=== PATIENT | female | born 1990 | race Caucasian/White ===

== ENCOUNTER → 2016-06-30 | Outpatient (CLI) | payer BC ==
--- NOTE | 2016-06-30 13:35 | DIAGNOSTIC IMAGING REPORT ---
CT OF THE HEAD WITHOUT CONTRAST CLINICAL HISTORY: Post concussion syndrome. COMPARISON STUDY: No previous studies for comparison. TECHNIQUE: Helical axial images of the head were obtained without IV contrast. Automated exposure control was utilized for the study. FINDINGS: No acute intracranial hemorrhage, midline shift or mass effect is present. Brain volume is normal. Ventricular system is normal. The basilar cisterns are patent. Cao-white differentiation is maintained. There are no findings to suggest acute dural sinus thrombosis or acute territorial infarct. There is no calvarial fracture. Visualized portions of the sinuses and the mastoid air cells are clear. IMPRESSION: 1. No acute intracranial findings. 2. No calvarial fracture. Electronically signed by: Richie Farah M.D. 06/30/2016 1:33 PM Dictated Date/Time: 06/30/2016 1:31 PM
== END | disposition home or self-care (01) ==
LOC: C.CTS 12:56
PROVIDERS: ATTEND Family Medicine
DX: S06.0X9A Concussion with loss of consciousness of unspecified duration, initial encounter (principal); X58.XXXA Exposure to other specified factors, initial encounter; M54.2 Cervicalgia

== ENCOUNTER → 2017-09-11 | Outpatient (CLI) | payer BC | END | disposition home or self-care (01) | LOC: C.LABSPEC 13:26 | PROVIDERS: ATTEND Obstetrics & Gynecology | DX: Z11.3 Encounter for screening for infections with a predominantly sexual mode of transmission (principal) ==

== ENCOUNTER 2020-10-22 07:38 | Inpatient (IN) ==
[2020-10-22] MEDS ORDERED: OXYTOCIN 30 UNITS/500 ML BAG IV PRN ×2 (09:35→09:37)
--- NOTE | 2020-10-22 09:48 | History & Physical Report ---
Date of Service October 22, 2020 Assessment & Plan (1) Supervision of normal first : Fariab Fitzpatrick is a 30yo female currently at 39+6 wga who presents to L&D for scheduled IOL. -admit to L&D -VSS -peripheral IV, labs -pitocin per protocol -Rh pos / rubella equivocal / GBS neg -Will need MMR -anticipate (2) Need for immunization against rubella: Admission and Anticipated Discharge Date Admission Date: October 22, 2020 History of Present Illness Primary Care Provider: Bennie Philip MD Fariba Fitzpatrick is a 30yo female currently at 39+6 wga (CRUZ 10/23/20 by LMP) who presents to L&D for IOL. Patient reports rare irregular contractions, + movement, denies fluid loss, or bloody show. Patient had a carter bulb placed yesterday; it was in place upon patient arrival today, and was removed by Dr. Everett. Patient endorses very mild spotting after carter bulb placement. Patient endorses mild ankle swelling; denies other symptoms at this time including abdominal pain, nausea, vomiting, headache, chest pain, SOB, or other symptoms. Patient had regular care through [facility]. course was complicated by covid infection in July, which was a 4-5 day course of mild/moderate upper respiratory symptoms; patient did not require hospitalization or medical intervention. Patient has no chronic medical conditions. Patient's daily meds are PNV daily, colace twice daily, and iron supplementation every other day. Blood type: AB pos Antibody screen: neg PNL: Rubella: equivocal VDRL/RPR: nonreactive Gonorrhea: not detected Chlamydia: not detected HIV: negative HbSAg: neg GBS negative 09/30/20 COVID-19 positive on 08/02/20 Other screens: CF: neg Pano: neg Allergies Allergy/AdvReac Type Severity Reaction Status Date / Time No Known Allergies Allergy Verified 10/22/20 08:25 Home Medications Medication Instructions Recorded Confirmed Type prenat.vits,ivonne,pii-[id number]-[id number] 1 tab PO DAILY 03/12/20 10/22/20 History docusate sodium 100 mg capsule 100 mg PO BID 07/05/20 10/22/20 History ferrous sulfate 27 mg PO .every other day 08/26/20 10/22/20 History Patient History Medical History ASCUS with positive high risk HPV (2013) History of chlamydia (2013) History of pyelonephritis (Unknown) Varicella vaccination Surgical History H/O oral surgery History of colposcopy (2013) S/P wisdom tooth extraction Family History Aunt Ovarian cancer maternal Father Sarcoma Grandfather (Paternal) Prostate cancer Denies family history of Breast cancer Colorectal cancer Social History (Updated 03/12/20 @ 11:10 by Miriam Will) Smoking Status: Never smoker Second Hand Exposure: No; Hx Alcohol Use: No Hx Substance Use: No Preferred Language: Hebrew Communication Ability: Effective Beliefs That Will Affect Care: None marital status: marital status details: Gal Piersonjean carlos (33) [phone] Current Living Situation: Spouse Current Living Situation Comment: Gal Fitzpatrick current occupational status: employed current occupation: [employer] Other Information That Helps Us Care for You: No Feels Safe at Home: Yes Safety Concerns: Feels Safe At This Time Physical Activity Frequency: 3-4 Times per Week Assistive Devices: None Review of Systems Denies fever, chills, shortness of breath, cough, chest pain, breast pain, dysuria, hematuria, leg pain, headache, or changes in vision. Physical Exam Physical Exam: General: well-appearing, alert, oriented, no acute distress Cardiac: regular rhythm, no murmur appreciated Respiratory: CTABL a/p, no wheezes/rales/rhonchi, no increased work of breathing, symmetrical chest rise, no respiratory distress Abdomen: normal gravid abdomen, + heart tones, - palpable contractions Pelvic: dilation 3cm, effacement 80%, station -[address] Everett, EFW 8-9lbs External FHT and external uterine monitors used; FHR 150, moderate variability, + accels, no decels or variables, cat 1 tracing Lower extremities: 1+ pitting edema of the lower extremities bilaterally, no deep calf pain, Winnie's negative bilaterally Results & Data ([facility]) Vital Signs (Past 12 Hours) Vital Signs Temp Pulse Resp BP 10/22/20 08:00 36.9 C 20 10/22/20 07:57 92 H 133/78 Laboratory Results Labs at admission today H.9 Hct: 36.1 WBC: 10.65 Plt: 256 Code Status & VTE Plan VTE Prophylaxis Plan VTE Prophylaxis will be ordered: No Supervising Physician Co-Signing Physician Notes 30 y/o G1 at 39 6/7 wga presents for eIOL for suspected LGA. +FM; denies regular ctx, LOF, VB. Had carter bulb placed last night and removed this morning. Will start pit. GBS neg. COVID+ within the last 90 days but >10 days so repeat testing deferred per protocol. Coding Level of Care Code None Diagnoses Supervision of normal first Z34.00 Need for immunization against rubella Z23 Resident Activity Tracking Resident Involvement: Resident Care Provided Care Provided: OB Delivery
[2020-10-22 09:54] LABS: Hematocrit (blood only) 36.1 % (37-47); Hemoglobin 12.9 g/dL (12.0-16.0); Mean Corpuscular Hemoglobin 33.5 pg (25-34); Mean Corpuscular Hgb Conc 35.7 g/dL (32-36); Mean Corpuscular Volume 93.8 fL (80-100); Mean Platelet Volume 10.6 fL (7.4-10.4); Platelet Count 256 K/uL (130-400); RDW Coefficient of Variation 13.1 % (11.5-14.5); RDW Standard Deviation 44.7 fL (36.4-46.3); Red Blood Count 3.85 M/uL (4.2-5.4); White Blood Count 10.65 K/uL (4.8-10.8)
[2020-10-22] MEDS: LACTATED RINGER'S 1,000 ML IV PRN ×4 (10:16→21:32)
[2020-10-22] MEDS ORDERED: ePHEDrine sulfate 50 MG/ML AMP ONE (14:34)
[2020-10-22] MEDS ORDERED: BUPIVACAINE 0.25% 30 ML VIAL ONE (14:35)
[2020-10-22] MEDS ORDERED: SODIUM CHLORIDE 0.9% INJ 10 ML VIAL ONE (14:35)
[2020-10-22] MEDS ORDERED: fentaNYL citrate 100 MCG/2 ML VIAL ONE (14:35)
[2020-10-22] MEDS ORDERED: fentaNYL 2MCG/ML ROPIVACAINE 1.25MG/ML 100 ML BAG EPI ONE (14:36)
--- NOTE | 2020-10-22 15:22 | Anesthesiology Consultation ---
Date of Service October 22, 2020 Assessment & Plan ASA ASA2 Proposed Anesthesia Anesthesia Type: Labor Epidural Risk / Benefits Reviewed With: PT / POA / Parent / Guardian, Accepts Plan and Informed Consent Obtained History Height/Weight Height: 5 ft 5 in Weight: 90.855 kg Allergies Allergy/AdvReac Type Severity Reaction Status Date / Time No Known Allergies Allergy Verified 10/22/20 08:25 Medications Home Medications Medication Instructions Recorded Confirmed Last Taken prenat.vits,ivonne,[id number] 1 tab PO DAILY 03/12/20 10/22/20 10/22/20 06:00 docusate sodium 100 mg capsule 100 mg PO BID 07/05/20 10/22/20 10/22/20 06:00 ferrous sulfate 27 mg PO .every other day 08/26/20 10/22/20 10/22/20 06:00 Active Medications Generic Name Dose Route Start Last Admin Trade Name Freq PRN Reason Stop Dose Admin Oxytocin 30 units in 500 mls @ 10 mls/hr 10/22/20 09:37 10/22/20 14:50 Pitocin IV 10/24/20 09:36 0.6 units/hr .Q24H PRN 10 mls/hr Labor Induction/Augmentation Titration Protocol 0.6 UNITS/HR Lactated Ringer's 1,000 mls @ 125 mls/hr 10/22/20 09:35 10/22/20 15:18 Lr IV 10/24/20 09:34 125 mls/hr .Q8H PRN Infusion L&D Protocol Protocol Past Medical History Medical History ASCUS with positive high risk HPV (2012) History of chlamydia (2013) History of pyelonephritis (Unknown) Varicella vaccination Exercise / Class Metabolic Activity II 4-5 Yardwork/Stairs/Walk up hill Past Family History Family History Aunt Ovarian cancer maternal Father Sarcoma Grandfather (Paternal) Prostate cancer Denies family history of Breast cancer Colorectal cancer Past Surgical History Surgical History H/O oral surgery History of colposcopy (2012) S/P wisdom tooth extraction Past Anesthesia History No Hx of Anesthesia Complications and No Family Hx of Anesthesia Complications History of PONV No Hx of PONV and No Hx of Motion Sickness Social History Smoking Status: Never smoker Hx Alcohol Use: No Hx Substance Use: No substance use type: does not use Review of Systems denies fever/cough/ colds/ chest pain/ SOB/ ROBERT denies ROBERT Physical Exam Vital Signs Last Vital Signs Temp 36.9 C 10/22/20 12:32 Pulse 79 10/22/20 15:18 Resp 18 10/22/20 12:32 BP 104/61 10/22/20 15:18 Pulse Ox 99 10/22/20 15:14 ENMT Mouth: no TMJ abnormality and no dentition abnormality Thyromental Distance: > or= 3.5 Finger Breadths Mallampati Class: II Neck neck extension not limited Respiratory normal respiratory effort; no respiratory distress Auscultation: lungs clear to auscultation bilaterally Cardiovascular Rate/Rhythm: regular rate and regular rhythm Neurologic moves all extremities Psychiatric Orientation: alert and oriented x 3 Testing Laboratory Results 10/22/20 09:44
[2020-10-22] MEDS ORDERED: ePHEDrine sulfate 50 MG/ML AMP IV PRN (15:25)
[2020-10-22] MEDS ORDERED: NALOXONE HCL 1 MG in SODIUM CHLORIDE 0.9% 1000ML 1,000 ML IV PRN (15:25)
[2020-10-22] MEDS ORDERED: NALOXONE HCL 0.4 MG/1 ML VIAL/CARP IV PRN (15:25)
[2020-10-22] MEDS ORDERED: diphenhydrAMINE 50 MG/ML VIAL IV PRN (15:25)
--- NOTE | 2020-10-22 15:32 | Labor Progress Brief Note ---
Date of Service October 22, 2020 Subjective Comfortable w/ epidural Assessment & Plan (1) : 30 y/o G1 at 39 6/7 wga presenting for IOL for suspected macrosomia VSS Fetus cat 1 Labor - pit per protocol, s/p arom GBS neg Epidural in place Admission and Anticipated Discharge Date Admission Date: October 22, 2020 Physical Exam Constitutional: WD/WN, vitals as above Genitourinary: Manual OB Exam: + cervical dilation 4 cm, + cervical effacement 70%, + station -2 and + amniotic fluid (clear fluid) OB Exam Monitor Tracing: + external FHT monitor used, + external uterine monitor used (q2-3) and + category I (125/mod/+accel/-decel) Results & Data ([facility]) Vital Signs (Past 12 Hours) Vital Signs Temp Pulse Resp BP Pulse Ox 10/22/20 15:28 75 107/60 10/22/20 15:26 83 108/59 L 10/22/20 15:24 83 113/61 100 10/22/20 15:22 88 108/60 10/22/20 15:20 76 105/58 L 10/22/20 15:19 77 98 10/22/20 15:18 79 104/61 10/22/20 15:16 78 112/59 L 10/22/20 15:14 89 123/59 L 99 10/22/20 15:13 95 H 110/56 L 10/22/20 15:12 99 H 120/63 10/22/20 15:10 87 126/73 10/22/20 15:09 88 99 10/22/20 15:08 92 H 142/83 H 10/22/20 15:05 85 141/80 H 10/22/20 15:04 85 100 10/22/20 14:59 89 100 10/22/20 14:54 79 100 10/22/20 14:49 85 100 10/22/20 14:44 77 99 10/22/20 14:39 83 100 10/22/20 14:34 82 99 10/22/20 14:29 76 135/81 98 10/22/20 12:32 98.4 F 18 10/22/20 12:30 75 119/60 10/22/20 11:27 82 122/70 10/22/20 10:10 78 136/77 10/22/20 08:00 98.4 F 20 10/22/20 07:57 92 H 133/78 Coding Level of Care Code None Diagnoses Z34.90
--- NOTE | 2020-10-22 18:18 | Labor Progress Brief Note ---
Date of Service October 22, 2020 Subjective Pt still comfortable with epidural. Had spontaneous decel for 3 minutes that resolved with maternal repositioning and bolus, while recovering fetus was noted to have recurrent late decels that then resolved over time with further repositioning. During repositioning at another shorter decel that again resolved with maternal repositioning. Pit able to remain at 10 during this time. Assessment & Plan (1) : 30 y/o G1 at 39 6/7 wga presenting for IOL for suspected macrosomia VSS Fetus cat 2, improved repositioning Labor - pit per protocol, s/p arom. Good variability remains, will continue repositioning. May need pit break if occurs again. Discussed w/ pt if there is another decel where heart rate remains bradycardic, that would be indication for emergent CS. Discussed indications, risks, benefits, alternatives with risks including infection, bleeding, injury to adjacent structures (bowel, bladder, ureters, blood vessels, nerves, baby), possible need for blood transfusion and/or life saving hysterectomy. Pt verbalized understanding. Will continue to monitor GBS neg Epidural in place Admission and Anticipated Discharge Date Admission Date: October 22, 2020 Physical Exam Genitourinary: OB Exam Monitor Tracing: + external uterine monitor used (q4) and + category I (155/mod/-accels/intermittent late/variables) Results & Data ([facility]) Vital Signs (Past 12 Hours) Vital Signs Temp Pulse Resp BP Pulse Ox 10/22/20 18:09 76 100 10/22/20 18:05 78 108/54 L 10/22/20 18:04 82 100 10/22/20 18:00 18 10/22/20 17:59 85 100 10/22/20 17:54 79 100 10/22/20 17:51 77 112/57 L 10/22/20 17:49 74 100 10/22/20 17:44 80 100 10/22/20 17:39 81 100 10/22/20 17:37 98.4 F 10/22/20 17:35 82 118/64 10/22/20 17:34 79 100 10/22/20 17:30 18 10/22/20 17:29 77 100 10/22/20 17:24 82 100 10/22/20 17:22 91 H 94 10/22/20 17:21 78 118/64 10/22/20 17:19 97 H 100 10/22/20 17:14 73 100 05 17:09 73 100 0507 17:05 75 121/64 05 17:04 73 100 05 17:00 18 10/22/20 16:59 75 99 0507 16:54 72 100 10/22/20 16:50 77 134/66 05 16:49 85 100 0507 16:44 80 125/72 100 0507 16:39 71 122/68 100 05 16:35 75 116/63 05 16:34 71 99 10/22/20 16:30 81 18 112/70 05 16:29 79 100 05 16:24 90 110/64 100 10/22/20 16:20 80 123/69 05 16:19 81 100 10/22/20 16:18 84 93 10/22/20 16:14 80 114/62 100 05 16:09 84 116/64 100 10/22/20 16:06 77 122/67 05 16:04 72 100 10/22/20 16:00 18 10/22/20 15:59 79 118/66 100 0507 15:54 75 122/69 99 07 15:50 77 122/67 10/22/20 15:49 75 98 10/22/20 15:44 94 H 109/58 L 100 10/22/20 15:42 96 H 118/67 0507 15:40 86 113/64 0507 15:39 87 100 0507 15:38 103 H 121/69 05 15:36 112 H 114/71 05 15:34 87 114/66 100 0507 15:32 72 100/56 L 07 15:30 73 18 107/62 0507 15:29 72 100 050721 15:28 75 107/60 0507 15:27 98.1 F 10/22/20 15:26 83 108/59 L 07 15:24 83 113/61 100 0507 15:22 88 108/60 05 15:20 76 105/58 L 10/22/20 15:19 77 98 10/22/20 15:18 79 104/61 10/22/20 15:16 78 112/59 L 10/22/20 15:14 89 123/59 L 99 10/22/20 15:13 95 H 110/56 L 10/22/20 15:12 99 H 120/63 10/22/20 15:10 87 126/73 10/22/20 15:09 88 99 10/22/20 15:08 92 H 142/83 H 10/22/20 15:05 85 141/80 H 10/22/20 15:04 85 100 10/22/20 14:59 89 100 10/22/20 14:54 79 100 10/22/20 14:49 85 100 10/22/20 14:44 77 99 10/22/20 14:39 83 100 10/22/20 14:34 82 99 10/22/20 14:29 76 135/81 98 10/22/20 12:32 98.4 F 18 10/22/20 12:30 75 119/60 10/22/20 11:27 82 122/70 10/22/20 10:10 78 136/77 10/22/20 08:00 98.4 F 20 10/22/20 07:57 92 H 133/78 Coding Level of Care Code None Diagnoses Z34.90
--- NOTE | 2020-10-22 19:06 | Labor Progress Brief Note ---
Date of Service October 22, 2020 Subjective Met with patient and as started having late decels again Assessment & Plan (1) : 30 y/o G1 at 39 6/7 wga presenting for IOL for suspected macrosomia VSS Fetus cat 2, improved repositioning Labor - Will pit break to see if this will help, variability remains moderate. Discussed plan of care, indications for CS and pt and aware. Will continue to monitor GBS neg Epidural in place Admission and Anticipated Discharge Date Admission Date: October 22, 2020 Physical Exam Constitutional: WD/WN, vitals as above Genitourinary: Manual OB Exam: + cervical dilation 5 cm, + cervical effacement 80% and + station -1 OB Exam Monitor Tracing: + external FHT monitor used, + external uterine monitor used (q2-5) and + category II (150/mod/-accels/intermit late decels) Results & Data ([facility]) Vital Signs (Past 12 Hours) Vital Signs Temp Pulse Resp BP Pulse Ox 10/22/20 18:54 78 99 10/22/20 18:50 88 120/58 L 10/22/20 18:49 95 H 99 10/22/20 18:44 94 H 99 10/22/20 18:39 93 H 100 10/22/20 18:36 82 106/53 L 10/22/20 18:34 84 98 10/22/20 18:29 82 100 10/22/20 18:26 94 H 94 10/22/20 18:24 82 100 10/22/20 18:20 82 108/57 L 10/22/20 18:19 84 100 10/22/20 18:14 78 99 10/22/20 18:09 76 100 10/22/20 18:05 78 108/54 L 10/22/20 18:04 82 100 10/22/20 18:00 18 10/22/20 17:59 85 100 10/22/20 17:54 79 100 10/22/20 17:51 77 112/57 L 10/22/20 17:49 74 100 10/22/20 17:44 80 100 10/22/20 17:39 81 100 10/22/20 17:37 98.4 F 10/22/20 17:35 82 118/64 10/22/20 17:34 79 100 10/22/20 17:30 18 05/07 17:29 77 100 05/0721 17:24 82 100 05/0721 17:22 91 H 94 05/0721 17:21 78 118/64 050721 17:19 97 H 100 050721 17:14 73 100 050721 17:09 73 100 050721 17:05 75 121/64 050721 17:04 73 100 0507 17:00 18 10/22/20 16:59 75 99 05/0721 16:54 72 100 0507 16:50 77 134/66 05/07 16:49 85 100 0507 16:44 80 125/72 100 050721 16:39 71 122/68 100 0507 16:35 75 116/63 050721 16:34 71 99 10/22/20 16:30 81 18 112/70 0507 16:29 79 100 05 16:24 90 110/64 100 0507 16:20 80 123/69 05/0721 16:19 81 100 0507 16:18 84 93 05/07 16:14 80 114/62 100 0507 16:09 84 116/64 100 0507 16:06 77 122/67 0507 16:04 72 100 0507 16:00 18 10/22/20 15:59 79 118/66 100 05/0721 15:54 75 122/69 99 05/0721 15:50 77 122/67 05/0721 15:49 75 98 05/0721 15:44 94 H 109/58 L 100 05/0721 15:42 96 H 118/67 05/07/21 15:40 86 113/64 05/07/21 15:39 87 100 05/0721 15:38 103 H 121/69 05/07/21 15:36 112 H 114/71 05/07/21 15:34 87 114/66 100 05/07/21 15:32 72 100/56 L 07/21 15:30 73 18 107/62 05/07/21 15:29 72 100 05/07/21 15:28 75 107/60 05/07/21 15:27 98.1 F 10/22/20 15:26 83 108/59 L 10/22/20 15:24 83 113/61 100 10/22/20 15:22 88 108/60 10/22/20 15:20 76 105/58 L 10/22/20 15:19 77 98 10/22/20 15:18 79 104/61 10/22/20 15:16 78 112/59 L 10/22/20 15:14 89 123/59 L 99 10/22/20 15:13 95 H 110/56 L 10/22/20 15:12 99 H 120/63 10/22/20 15:10 87 126/73 10/22/20 15:09 88 99 10/22/20 15:08 92 H 142/83 H 10/22/20 15:05 85 141/80 H 10/22/20 15:04 85 100 10/22/20 14:59 89 100 10/22/20 14:54 79 100 10/22/20 14:49 85 100 10/22/20 14:44 77 99 10/22/20 14:39 83 100 10/22/20 14:34 82 99 10/22/20 14:29 76 135/81 98 10/22/20 12:32 98.4 F 18 10/22/20 12:30 75 119/60 10/22/20 11:27 82 122/70 10/22/20 10:10 78 136/77 10/22/20 08:00 98.4 F 20 10/22/20 07:57 92 H 133/78 Coding Level of Care Code None Diagnoses Z34.90
[2020-10-22] MEDS ORDERED: ONDANSETRON INJ 2 MG/ML 2 ML VIAL ONE (21:49)
[2020-10-22] MEDS: fentaNYL 2MCG/ML ROPIVACAINE 1.25MG/ML 100 ML BAG EPI PRN (22:00)
--- NOTE | 2020-10-22 22:06 | Labor Progress Brief Note ---
Date of Service October 22, 2020 Assessment & Plan (1) : 30 y/o G1 at 39 6/7 wga presenting for IOL for suspected macrosomia VSS Fetus cat 2, improved repositioning Labor - While on pit break, has actually continued to contract regularly and made cervical change. Cervix also feels stretchier now and pt is very nauseous and vomiting so ?if she is going into active labor on her own now. As miky on her own and fetus is tolerating current spontaneous contraction pattern, will continue monitor. Reviewed that if fetus does not tolerate current pattern or if we space out and start pit and does not tolerate it then, would likely recommend CS at that point. Pt and verbalized understanding. GBS neg Epidural in place Admission and Anticipated Discharge Date Admission Date: October 22, 2020 Physical Exam Constitutional: WD/WN, vitals as above Genitourinary: Manual OB Exam: + cervical dilation 6 cm, + cervical effacement 80% and + station 0 OB Exam Monitor Tracing: + external FHT monitor used, + external uterine monitor used (q3) and + category II (155/mod/+accel/intermittent late decels early, now variable) Results & Data ([facility]) Vital Signs (Past 12 Hours) Vital Signs Temp Pulse Resp BP Pulse Ox 10/22/20 21:59 83 10/22/20 21:54 91 H 99 10/22/20 21:50 90 135/78 10/22/20 21:49 85 99 10/22/20 21:44 85 97 10/22/20 21:39 85 97 10/22/20 21:35 108 H 130/74 10/22/20 21:34 100 H 99 10/22/20 21:29 86 100 10/22/20 21:24 90 99 10/22/20 21:20 85 131/74 10/22/20 21:19 86 98 10/22/20 21:14 85 97 10/22/20 21:09 83 98 10/22/20 21:05 85 129/69 10/22/20 21:04 87 98 10/22/20 21:00 18 10/22/20 20:59 94 H 98 10/22/20 20:54 100 H 98 10/22/20 20:50 90 129/71 10/22/20 20:49 89 98 10/22/20 20:44 80 98 10/22/20 20:39 101 H 99 10/22/20 20:35 81 132/72 10/22/20 20:34 96 H 97 10/22/20 20:29 98 H 98 10/22/20 20:24 93 H 98 10/22/20 20:21 118 H 124/72 10/22/20 20:19 120 H 98 10/22/20 20:14 102 H 98 10/22/20 20:09 90 99 10/22/20 20:08 97 H 88 L 10/22/20 20:05 84 121/72 10/22/20 20:04 83 97 10/22/20 20:00 18 10/22/20 19:59 87 97 10/22/20 19:54 84 98 10/22/20 19:50 93 H 115/70 10/22/20 19:49 94 H 97 10/22/20 19:44 85 99 10/22/20 19:39 85 97 10/22/20 19:35 117/63 10/22/20 19:34 98 H 100 10/22/20 19:30 18 10/22/20 19:29 84 98 10/22/20 19:25 98.2 F 10/22/20 19:24 82 97 10/22/20 19:20 90 116/58 L 10/22/20 19:19 87 97 10/22/20 19:14 94 H 97 10/22/20 19:09 89 100 10/22/20 19:05 80 117/63 10/22/20 19:04 76 98 10/22/20 19:00 18 10/22/20 18:59 84 100 10/22/20 18:54 78 99 10/22/20 18:50 88 120/58 L 10/22/20 18:49 95 H 99 10/22/20 18:44 94 H 99 10/22/20 18:39 93 H 100 10/22/20 18:36 82 106/53 L 10/22/20 18:34 84 98 10/22/20 18:30 18 10/22/20 18:29 82 100 10/22/20 18:26 94 H 94 10/22/20 18:24 82 100 10/22/20 18:20 82 108/57 L 10/22/20 18:19 84 100 10/22/20 18:14 78 99 10/22/20 18:09 76 100 10/22/20 18:05 78 108/54 L 10/22/20 18:04 82 100 10/22/20 18:00 18 10/22/20 17:59 85 100 10/22/20 17:54 79 100 10/22/20 17:51 77 112/57 L 10/22/20 17:49 74 100 10/22/20 17:44 80 100 10/22/20 17:39 81 100 10/22/20 17:37 98.4 F 10/22/20 17:35 82 118/64 10/22/20 17:34 79 100 10/22/20 17:30 18 10/22/20 17:29 77 100 10/22/20 17:24 82 100 10/22/20 17:22 91 H 94 10/22/20 17:21 78 118/64 10/22/20 17:19 97 H 100 10/22/20 17:14 73 100 10/22/20 17:09 73 100 10/22/20 17:05 75 121/64 10/22/20 17:04 73 100 10/22/20 17:00 18 10/22/20 16:59 75 99 0507 16:54 72 100 10/22/20 16:50 77 134/66 10/22/20 16:49 85 100 10/22/20 16:44 80 125/72 100 10/22/20 16:39 71 122/68 100 0507 16:35 75 116/63 0507 16:34 71 99 10/22/20 16:30 81 18 112/70 05 16:29 79 100 10/22/20 16:24 90 110/64 100 0507 16:20 80 123/69 0507 16:19 81 100 05 16:18 84 93 07 16:14 80 114/62 100 0507 16:09 84 116/64 100 07 16:06 77 122/67 0507 16:04 72 100 0507 16:00 18 10/22/20 15:59 79 118/66 100 0507 15:54 75 122/69 99 0507 15:50 77 122/67 10/22/20 15:49 75 98 10/22/20 15:44 94 H 109/58 L 100 10/22/20 15:42 96 H 118/67 10/22/20 15:40 86 113/64 10/22/20 15:39 87 100 10/22/20 15:38 103 H 121/69 10/22/20 15:36 112 H 114/71 10/22/20 15:34 87 114/66 100 10/22/20 15:32 72 100/56 L 10/22/20 15:30 73 18 107/62 10/22/20 15:29 72 100 10/22/20 15:28 75 107/60 10/22/20 15:27 98.1 F 10/22/20 15:26 83 108/59 L 10/22/20 15:24 83 113/61 100 10/22/20 15:22 88 108/60 10/22/20 15:20 76 105/58 L 10/22/20 15:19 77 98 10/22/20 15:18 79 104/61 10/22/20 15:16 78 112/59 L 10/22/20 15:14 89 123/59 L 99 10/22/20 15:13 95 H 110/56 L 10/22/20 15:12 99 H 120/63 10/22/20 15:10 87 126/73 10/22/20 15:09 88 99 10/22/20 15:08 92 H 142/83 H 10/22/20 15:05 85 141/80 H 10/22/20 15:04 85 100 10/22/20 14:59 89 100 10/22/20 14:54 79 100 10/22/20 14:49 85 100 10/22/20 14:44 77 99 10/22/20 14:39 83 100 10/22/20 14:34 82 99 10/22/20 14:29 76 135/81 98 10/22/20 12:32 98.4 F 18 10/22/20 12:30 75 119/60 10/22/20 11:27 82 122/70 10/22/20 10:10 78 136/77 Coding Level of Care Code None Diagnoses Z34.90
[2020-10-22] MEDS ORDERED: NURSING L&D Epidural Breakthrough Pain Update ONE (23:14)
--- NOTE | 2020-10-23 02:02 | Labor Progress Brief Note ---
Date of Service October 23, 2020 Subjective Able to rest, feeling some ctx in R hip Assessment & Plan (1) : 30 y/o G1 at 39 6/7 wga presenting for IOL for suspected macrosomia VSS Fetus cat 2, improved repositioning Labor - Pit was restarted and is now at 5 with good progression, continue to monitor GBS neg Epidural in place Admission and Anticipated Discharge Date Admission Date: October 22, 2020 Physical Exam Constitutional: WD/WN, vitals as above Genitourinary: Manual OB Exam: + cervical dilation 9 cm, + cervical effacement 90% and + station + 1 OB Exam Monitor Tracing: + external FHT monitor used, + external uterine monitor used (q3) and + category II (155/mod/+accel/intermittent variable decels) Results & Data ([facility]) Vital Signs (Past 12 Hours) Vital Signs Temp Pulse Resp BP Pulse Ox 10/23/20 01:54 104 H 99 10/23/20 01:52 94 H 116/58 L 10/23/20 01:49 89 97 10/23/20 01:44 83 96 10/23/20 01:39 86 96 10/23/20 01:36 78 127/72 10/23/20 01:34 85 97 10/23/20 01:29 83 98 10/23/20 01:24 85 97 10/23/20 01:20 78 133/70 10/23/20 01:19 84 98 10/23/20 01:14 85 97 10/23/20 01:09 82 97 10/23/20 01:06 82 129/77 10/23/20 01:04 84 97 10/23/20 00:59 79 97 10/23/20 00:54 79 98 10/23/20 00:50 78 136/78 10/23/20 00:49 95 H 99 10/23/20 00:44 81 97 10/23/20 00:39 83 97 10/23/20 00:35 78 133/66 10/23/20 00:34 82 97 10/23/20 00:29 82 97 10/23/20 00:24 84 97 10/23/20 00:21 83 131/67 10/23/20 00:19 84 97 10/23/20 00:14 86 97 10/23/20 00:09 83 98 10/23/20 00:06 82 131/70 10/23/20 00:04 85 97 10/22/20 23:59 83 97 10/22/20 23:54 106 H 97 10/22/20 23:50 113 H 116/66 10/22/20 23:49 109 H 99 10/22/20 23:44 78 97 10/22/20 23:39 80 98 10/22/20 23:36 78 131/66 10/22/20 23:34 80 98 10/22/20 23:29 77 99 10/22/20 23:24 80 98 10/22/20 23:20 92 H 135/87 10/22/20 23:19 86 99 10/22/20 23:15 98.8 F 16 10/22/20 23:14 85 100 10/22/20 23:09 84 98 10/22/20 23:05 84 133/75 10/22/20 23:04 86 99 10/22/20 23:00 18 10/22/20 22:59 81 100 10/22/20 22:54 90 100 10/22/20 22:50 77 127/71 10/22/20 22:49 81 99 10/22/20 22:44 85 98 10/22/20 22:39 90 98 10/22/20 22:37 80 128/76 10/22/20 22:34 82 99 10/22/20 22:29 84 97 10/22/20 22:24 82 97 10/22/20 22:20 80 129/69 10/22/20 22:19 82 97 10/22/20 22:14 78 98 10/22/20 22:09 85 98 10/22/20 22:04 85 97 10/22/20 22:00 18 10/22/20 21:59 83 97 10/22/20 21:54 91 H 99 10/22/20 21:50 90 135/78 10/22/20 21:49 85 99 10/22/20 21:44 85 97 10/22/20 21:39 85 97 10/22/20 21:36 98.2 F 10/22/20 21:35 108 H 130/74 10/22/20 21:34 100 H 99 05 21:30 18 10/22/20 21:29 86 100 0501/05 21:24 90 99 05/07/21 21:20 85 131/74 10/22/20 21:19 86 98 10/22/20 21:14 85 97 10/22/20 21:09 83 98 10/22/20 21:05 85 129/69 10/22/20 21:04 87 98 10/22/20 21:00 18 10/22/20 20:59 94 H 98 10/22/20 20:54 100 H 98 10/22/20 20:50 90 129/71 10/22/20 20:49 89 98 10/22/20 20:44 80 98 10/22/20 20:39 101 H 99 10/22/20 20:35 81 132/72 10/22/20 20:34 96 H 97 10/22/20 20:29 98 H 98 10/22/20 20:24 93 H 98 10/22/20 20:21 118 H 124/72 10/22/20 20:19 120 H 98 10/22/20 20:14 102 H 98 10/22/20 20:09 90 99 10/22/20 20:08 97 H 88 L 10/22/20 20:05 84 121/72 10/22/20 20:04 83 97 10/22/20 20:00 18 10/22/20 19:59 87 97 10/22/20 19:54 84 98 10/22/20 19:50 93 H 115/70 10/22/20 19:49 94 H 97 10/22/20 19:44 85 99 10/22/20 19:39 85 97 10/22/20 19:35 117/63 10/22/20 19:34 98 H 100 10/22/20 19:30 18 10/22/20 19:29 84 98 10/22/20 19:25 98.2 F 10/22/20 19:24 82 97 10/22/20 19:20 90 116/58 L 10/22/20 19:19 87 97 10/22/20 19:14 94 H 97 10/22/20 19:09 89 100 10/22/20 19:05 80 117/63 10/22/20 19:04 76 98 10/22/20 19:00 18 10/22/20 18:59 84 100 10/22/20 18:54 78 99 10/22/20 18:50 88 120/58 L 10/22/20 18:49 95 H 99 10/22/20 18:44 94 H 99 10/22/20 18:39 93 H 100 10/22/20 18:36 82 106/53 L 10/22/20 18:34 84 98 10/22/20 18:30 18 10/22/20 18:29 82 100 10/22/20 18:26 94 H 94 10/22/20 18:24 82 100 10/22/20 18:20 82 108/57 L 10/22/20 18:19 84 100 10/22/20 18:14 78 99 10/22/20 18:09 76 100 10/22/20 18:05 78 108/54 L 10/22/20 18:04 82 100 10/22/20 18:00 18 10/22/20 17:59 85 100 10/22/20 17:54 79 100 10/22/20 17:51 77 112/57 L 10/22/20 17:49 74 100 10/22/20 17:44 80 100 10/22/20 17:39 81 100 10/22/20 17:37 98.4 F 10/22/20 17:35 82 118/64 10/22/20 17:34 79 100 10/22/20 17:30 18 10/22/20 17:29 77 100 10/22/20 17:24 82 100 10/22/20 17:22 91 H 94 10/22/20 17:21 78 118/64 10/22/20 17:19 97 H 100 10/22/20 17:14 73 100 10/22/20 17:09 73 100 10/22/20 17:05 75 121/64 10/22/20 17:04 73 100 10/22/20 17:00 18 10/22/20 16:59 75 99 10/22/20 16:54 72 100 10/22/20 16:50 77 134/66 10/22/20 16:49 85 100 10/22/20 16:44 80 125/72 100 10/22/20 16:39 71 122/68 100 10/22/20 16:35 75 116/63 10/22/20 16:34 71 99 10/22/20 16:30 81 18 112/70 10/22/20 16:29 79 100 05/07/21 16:24 90 110/64 100 10/22/20 16:20 80 123/69 10/22/20 16:19 81 100 10/22/20 16:18 84 93 10/22/20 16:14 80 114/62 100 10/22/20 16:09 84 116/64 100 10/22/20 16:06 77 122/67 10/22/20 16:04 72 100 10/22/20 16:00 18 10/22/20 15:59 79 118/66 100 10/22/20 15:54 75 122/69 99 10/22/20 15:50 77 122/67 10/22/20 15:49 75 98 10/22/20 15:44 94 H 109/58 L 100 10/22/20 15:42 96 H 118/67 10/22/20 15:40 86 113/64 10/22/20 15:39 87 100 10/22/20 15:38 103 H 121/69 10/22/20 15:36 112 H 114/71 10/22/20 15:34 87 114/66 100 10/22/20 15:32 72 100/56 L 10/22/20 15:30 73 18 107/62 10/22/20 15:29 72 100 10/22/20 15:28 75 107/60 10/22/20 15:27 98.1 F 10/22/20 15:26 83 108/59 L 10/22/20 15:24 83 113/61 100 10/22/20 15:22 88 108/60 10/22/20 15:20 76 105/58 L 10/22/20 15:19 77 98 10/22/20 15:18 79 104/61 10/22/20 15:16 78 112/59 L 10/22/20 15:14 89 123/59 L 99 10/22/20 15:13 95 H 110/56 L 10/22/20 15:12 99 H 120/63 10/22/20 15:10 87 126/73 10/22/20 15:09 88 99 10/22/20 15:08 92 H 142/83 H 10/22/20 15:05 85 141/80 H 10/22/20 15:04 85 100 10/22/20 14:59 89 100 10/22/20 14:54 79 100 10/22/20 14:49 85 100 10/22/20 14:44 77 99 10/22/20 14:39 83 100 10/22/20 14:34 82 99 10/22/20 14:29 76 135/81 98 Coding Level of Care Code None Diagnoses Z34.90
[2020-10-23] MEDS: fentaNYL 2MCG/ML ROPIVACAINE 1.25MG/ML 100 ML BAG EPI PRN (03:12)
--- NOTE | 2020-10-23 06:57 | Delivery Summary ---
Vaginal Delivery Summary Date of Service October 23, 2020 Vaginal Delivery Summary and 2nd Degree LAC PREOPERATIVE DIAGNOSIS: 1. Single intrauterine at 40 wga 2. Induction of labor for suspected LGA POSTOPERATIVE DIAGNOSIS: 1. Single intrauterine at 40 wga 2. Induction of labor for suspected LGA 3. Delivered PROCEDURE: 1. Normal spontaneous vaginal delivery. SURGEON: Dianna Murray MD ANESTHESIA: Epidural. ESTIMATED BLOOD LOSS: 300 mL FLUIDS: Continuous LR. URINE OUTPUT: None. COMPLICATIONS: None. CONDITION: Stable. INDICATIONS: 30 y/o G1 at 40 wga presented yesterday for induction of labor for suspected LGA. She had received a carter bulb the evening prior which was removed on arrival. She was started on pitocin which was titrated up per protocol. She underwent artificial rupture of membranes. She did progress to 5cm however fetus would have a cat 2 strip with short periods of late decels that would recover with repositioning. After few exams without change, decision was made to pause the pitocin for resuscitation. During this time, she continued to contract and progress spontaneously. Once fetus improved, pitocin was restarted slowly and she eventually continued to progress to complete and desired to push. FINDINGS: A viable male infant with Apgars of 6 and 8 at 1 and 5 minutes respectively. SPECIMEN: Cord blood, cord gases OPERATIVE REPORT: The patient progressed to 10 cm, 100% effaced and +2 station, pushed over intact perineum with anesthesia to deliver a viable male infant, Apgars as above. Head of delivered in MOLLY position with large gush of thick meconium fluid. No nuchal cord was present. Body and shoulders were delivered without difficulty. was delivered to maternal abdomen and nursing staff. Delayed cord clamping was started however deferred as was not quite vigorous due to meconium. Cord was clamped and cut. Cord blood was obtained. Placenta delivered spontaneously intact with 3-vessel cord. IV oxytocin and fundal massage were given for excellent hemostasis. Vagina, cervix, perineum, and placenta were inspected. Second degree laceration was noted and repaired in the usual fashion. A hemostatic periclitoral laceration was noted and not needed to be repaired. Sponge and needle counts correct x2. No sponges were left behind. Mother and stable in immediate period. [facility] [place] Vaginal Delivery Charge Vaginal Delivery Codes: 13213 global code for the antepartum, delivery, and post- Delivery Type Details: and 2nd Degree LAC
[2020-10-23] MEDS ORDERED: FERROUS SULFATE 27 MG PO SCH (07:10)
[2020-10-23] MEDS ORDERED: LACTATED RINGER'S 1,000 ML IV SCH (07:10)
[2020-10-23] MEDS ORDERED: ACETAMINOPHEN 325 MG TAB PO PRN (07:10)
[2020-10-23] MEDS ORDERED: DIPHTHERIA/TETANUS/PERTUSSIS 0.5 ML SYR/VIAL IM ONE (07:10)
[2020-10-23] MEDS ORDERED: HYDROCORTISONE ACETATE 25 MG SUPP PR PRN (07:10)
[2020-10-23] MEDS ORDERED: MAGNESIUM HYDROXIDE SUSP 30 ML UDC PO PRN (07:10)
[2020-10-23] MEDS ORDERED: SUPERCREAM 0.870% 15 GM JAR EXT PRN (07:10)
[2020-10-23] MEDS ORDERED: SENNA 8.6 MG TAB PO PRN (07:10)
[2020-10-23] MEDS ORDERED: PROMETHAZINE HCL 25 MG in SODIUM CHLORIDE 0.9% 50 ML IV PRN (07:10)
[2020-10-23] MEDS ORDERED: MEASLES, MUMPS & RUBELLA VIRUS VIAL SQ ONE (07:10)
[2020-10-23] MEDS ORDERED: diphenhydrAMINE Capsule 25 MG CAP PO PRN (07:10)
[2020-10-23] MEDS ORDERED: BENZOCAINE 20% AER SPR 82.5 GM CAN EXT PRN (07:10)
[2020-10-23] MEDS ORDERED: ONDANSETRON INJ 2 MG/ML 2 ML VIAL IV PRN (07:10)
[2020-10-23] MEDS ORDERED: diphenhydrAMINE 50 MG/ML VIAL IV PRN (07:10)
[2020-10-23] MEDS ORDERED: OXYTOCIN 20 UNITS in LACTATED RINGER'S 1,000 ML IV SCH (07:30)
--- NOTE | 2020-10-23 07:57 | Anesthesia Procedure Note ---
Date of Service October 23, 2020 Anesthesia Post Epidural Note Vital Signs Vital Signs: Temp Pulse Resp BP Pulse Ox 98.4 F 76 20 131/68 92 10/23/20 05:55 10/23/20 07:50 10/23/20 05:55 10/23/20 07:50 10/23/20 06:24 Pain Intensity Right Abdomen: Pain Intensity: 5 Notes Mental Status: alert / awake / arousable and participated in evaluation Nausea / Vomiting: adequately controlled Pain: adequately controlled Airway Patency, RR, SpO2: stable & adequate BP & HR: stable & adequate Hydration State: stable & adequate Neuraxial Anesthesia: was administered and sensory block is resolving Anesthetic Complications: no major complications apparent and Pt Satisfied with anesthetic care Epidural: Removed without complications and With tip intact
[2020-10-23] MEDS: IBUPROFEN 600 MG TAB PO PRN ×4 (08:21→22:06)
[2020-10-23 08:47] LABS: Base Excess Cord Venous Blood -8.1 mEq/L (-7.7-1.9); Cord Venous Blood HCO3 18 mmol/L (18.4-26.8); Cord Venous Blood PCO2 40 mmHg (30.4-57.2); Cord Venous Blood PO2 37 mmHg (14.1-43.3); Cord Venous Blood pH 7.27 (7.20-7.44)
[2020-10-23 08:51] LABS: CO2 Cord Arterial Blood 50 mmHg (39.1-73.5); HCO3 Cord Arterial Blood 18 mmol/L (19.7-28.5); PO2 Cord Arterial Blood 29 mmHg (4.1-31.7); pH Cord Arterial Blood 7.18 (7.1-7.38)
[2020-10-23 08:55] LABS: Oxygen Sat Cord Arterial Blood < 60.0 % (<60)
[2020-10-23] MEDS ORDERED: NON-FORMULARY MEDICATION (Prenat.Vits,Cal,Min-Iron-Folic tablet) PO SCH (09:00)
[2020-10-23] MEDS: DOCUSATE SODIUM 100 MG CAP PO SCH ×4 (09:50→21:01)
[2020-10-23] MEDS: FERROUS SULFATE 325 MG TAB PO SCH (09:50)
[2020-10-23] MEDS: PRENATAL VITAMIN 1 TAB PO SCH (09:50)
[2020-10-23] MEDS: SIMETHICONE 80 MG CHEW PO SCH ×3 (09:50→21:01)
[2020-10-24] MEDS: IBUPROFEN 600 MG TAB PO PRN ×3 (03:19→16:10)
[2020-10-24 06:13] LABS: Basophils # (auto) 0.02 K/uL (0-0.2); Basophils % (auto) 0.1 %; Eosinophils # (auto) 0.07 K/uL (0-0.5); Eosinophils % (auto) 0.4 %; Hematocrit (blood only) 31.7 % (37-47); Hemoglobin 10.9 g/dL (12.0-16.0); Immature Granulocytes # (auto) 0.11 K/uL (0.00-0.02); Immature Granulocytes % (auto) 0.7 %; Lymphocytes # (auto) 2.68 K/uL (1.2-3.4); Lymphocytes % (auto) 17.2 %; Mean Corpuscular Hemoglobin 32.9 pg (25-34); Mean Corpuscular Hgb Conc 34.4 g/dL (32-36); Mean Corpuscular Volume 95.8 fL (80-100); Mean Platelet Volume 10.4 fL (7.4-10.4); Monocytes # (auto) 1.39 K/uL (0.11-0.59); Monocytes % (auto) 8.9 %; Neutrophils % (auto) 72.7 %; Platelet Count 225 K/uL (130-400); RDW Coefficient of Variation 13.5 % (11.5-14.5); RDW Standard Deviation 46.8 fL (36.4-46.3); Red Blood Count 3.31 M/uL (4.2-5.4); White Blood Count 15.57 K/uL (4.8-10.8)
--- NOTE | 2020-10-24 07:54 | Obstetrical Progress Note ---
Date of Service October 24, 2020 Assessment & Plan (1) Vaginal delivery: Doing well. Routine care. consider d/c later today if all goes well. Day #:: 1 Subjective Ambulation: ambulating normally Voiding: no voiding problems Passing Gas:: Yes Diet Tolerance:: regular diet Lochia:: Small Feeding Type:: breast feeding Physical Exam Constitutional WD/WN, vitals as above Respiratory normal respiratory effort, lungs clear to auscultation Cardiovascular RRR, no murmur, no edema Extremities: + edema (tr); no calf tenderness Gastrointestinal (Abdomen) soft, nt, nd, ff/nt at u Psychiatric A+Ox3, euthymic affect Results & Data ([facility]) Vital Signs (Past 12 Hours) Vital Signs Temp Pulse Resp BP Pulse Ox 10/24/20 03:20 36.7 C 90 17 111/69 97 10/23/20 23:50 36.5 C 71 16 118/81 99 10/23/20 20:40 36.6 C 89 17 112/64 98
[2020-10-24] MEDS: DOCUSATE SODIUM 100 MG CAP PO SCH (08:57)
[2020-10-24] MEDS: PRENATAL VITAMIN 1 TAB PO SCH (08:57)
[2020-10-24] MEDS: FERROUS SULFATE 325 MG TAB PO SCH (08:57)
[2020-10-24] MEDS: SIMETHICONE 80 MG CHEW PO SCH ×2 (08:57→17:51)
[2020-10-24] MEDS ORDERED: bisacodyL 5 MG TABEC PO SCH (20:00)
[2020-10-25] MEDS ORDERED: bisacodyL 10 MG SUPP PR PRN (06:54)
== END 2020-10-24 17:55 | disposition home or self-care (01) | DRG 807 ==
LOC: 4S1 07:38 → 4S2 10-23 10:02